=== PATIENT | male | born 1955 | race Caucasian/White ===

== ENCOUNTER 2019-03-27 01:26 | Emergency (ER) | payer BC ==
[~2019-03-27] VITALS: Ht 170.2 cm; Wt 104.3 kg
--- OUTSIDE RECORDS SUMMARY | ~2019-03-27 | XMS | Clinical Summary ---
Demographics + + + | Address | [address] | | | [place] [address] | + + + | Home Phone | | + + + | Preferred Language | Unknown | + + + | Marital Status | Unknown | + + + | Yazidism Affiliation | Unknown | + + + | Race | Unknown | + + + | Ethnic Group | Unknown | + + + Author + + + | Author | [facility] | | | and [place] | + + + | Organization | [facility] | | | and [place] | + + + | Address | Unknown | + + + | Phone | Unavailable | + + + Care Team Providers + +------+ + | Care Screen Printing Paster Name | Role | Phone | + +------+ + PP | Unavailable | + +------+ + Allergies No Known Allergies Medications + + + +---------+------+------+-------+ | Medication | Sig | Dispensed | Refills | Star | End | Statu | | | | | | t | Date | s | | | | | | Date | | | + + + +---------+------+------+-------+ | Fish Oil OIL | daily | | 0 | 09/1 | | Activ | | | | | | 4/20 | | e | | | | | | 12 | | | + + + +---------+------+------+-------+ | aspirin (ASPIRIN | Take 81 mg by mouth | | 0 | 09/1 | | Activ | | ADULT LOW STRENGTH) | Daily. | | | 4/20 | | e | | 81 MG EC tablet | | | | 12 | | | + + + +---------+------+------+-------+ | multivitamin | daily | | 0 | 09/1 | | Activ | | (THERAGRAN) per | | | | 4/20 | | e | | tablet | | | | 12 | | | + + + +---------+------+------+-------+ | allopurinol | | | 0 | 1 | | Activ | | (ZYLOPRIM) 100 mg | | | | 4/20 | | e | | tablet | | | | 12 | | | + + + +---------+------+------+-------+ | celecoxib | Take 200 mg by mouth | | 0 | 09/1 | | Activ | | (CELEBREX) 200 mg | Daily. | | | 420 | | e | | capsule | | | | 12 | | | + + + +---------+------+------+-------+ Active Problems Not on file Social History + +-------+ +--------+------+ | Tobacco Use | Types | Packs/Day | Years | Date | | | | | Used | | + +-------+ +--------+------+ | Never Assessed | | | | | + +-------+ +--------+------+ + + + | Sex Assigned at | Date Recorded | | | | + + + | Not on file | | + + + + + + + | Job Start Date | Occupation | Industry | + + + + | Not on file | Not on file | Not on file | + + + + + + + + | Travel History | Travel Start | Travel End | + + + + + + | No recent travel history available. | + + Last Filed Vital Signs + + + + | Vital Sign | Reading | Time Taken | + + + + | Blood Pressure | 138/78 | 05/23/2010 0000 PDT | + + + + | Pulse | - | - | + + + + | Temperature | - | - | + + + + | Respiratory Rate | - | - | + + + + | Oxygen Saturation | - | - | + + + + | Inhaled Oxygen | - | - | | Concentration | | | + + + + | Weight | 101.3 kg (223 lb 6.4 | 05/23/2010 0000 PDT | | | oz) | | + + + + | Height | 167.6 cm (5' 6") | 05/23/2010 0000 PDT | + + + + | Body Mass Index | 36.06 | 05/23/2010 0000 PDT | + + + + Plan of Treatment + + + + + | Health Maintenance | Due Date | Last Done | Comments | + + + + + | Vaccine: | | | | | Dtap/Tdap/Td (1 - | 2 | | | | Tdap) | | | | + + + + + | Vaccine: Zoster (1 | | | | | of 2) | 3 | | | + + + + + | Vaccine: | | | | | Pneumococcal 65+ | 8 | | | | Low/Medium Risk (1 | | | | | of 2 - PCV13) | | | | + + + + + | Vaccine: Influenza | | | | | (Season Ended) | 9 | | | + + + + + Results Not on filefrom Last 3 Months
--- OUTSIDE RECORDS SUMMARY | ~2019-03-27 | XMS | Clinical Summary ---
Demographics + + + | Address | [address] | | | [place] [address] | + + + | Home Phone | | + + + | Preferred Language | Unknown | + + + | Marital Status | Unknown | + + + | Oriental Orthodox Affiliation | Unknown | + + + | Race | Unknown | + + + | Ethnic Group | Unknown | + + + Author + + + | Author | [facility] | | | and [place] | + + + | Organization | [facility] | | | and [place] | + + + | Address | Unknown | + + + | Phone | Unavailable | + + + Care Team Providers + +------+ + | Care Civil Drafting Technician Name | Role | Phone | + [...]
[~2019-03-27 01:26] MED LIST: ALLOPURINOL100 MG PO; CELEBREX200 MG PO; CRUTCH1 EACH MISC; GLUCOPHAGE500 MG PO; VITAMIN D250000 UNIT PO
[2019-03-27] MEDS ORDERED: MECLIZINE HCL25 MG PO (03:23)
--- NOTE | 2019-03-27 07:17 | EKG ---
[facility] [address] [facility] [place] [address] Signed Normal sinus rhythm Possible Left atrial enlargement Borderline ECG No previous ECGs available Confirmed by HIPOLITO BARAKAT MD ([id number]) on 03/27/2019 7:17:22 AM Electronically Signed By: HIPOLITO BARAKAT MD 03/27/19 0717 PATIENT NAME: BRADLEY ONEAL J Electrocardiogram DATE OF : 51 PHYSICIAN: HIPOLITO BARAKAT MD REPORT #: [id number] REPORT IS CONFIDENTIAL AND NOT TO BE RELEASED WITHOUT AUTHORIZATION
== END 2019-03-27 03:30 | disposition home or self-care (01) ==
LOC: ED 01:26
DX: R42 Dizziness and giddiness (principal); I10 Essential (primary) hypertension; E11.9 Type 2 diabetes mellitus without complications; Z87.891 Personal history of nicotine dependence
CPT/HCPCS: 71045; 80053; 85025; 93005; 93010; 99284-25

== ENCOUNTER 2019-04-15 13:28 | Emergency (ER) | payer BC ==
[~2019-04-15] VITALS: Ht 170.2 cm; Wt 104.3 kg
--- OUTSIDE RECORDS SUMMARY | ~2019-04-15 | XMS | Clinical Summary ---
Demographics + + + | Address | [address] | | | [place] [address] | + + + | Home Phone | | + + + | Preferred Language | Unknown | + + + | Marital Status | Unknown | + + + | Shinto Affiliation | Unknown | + + + | Race | Unknown | + + + | Ethnic Group | Unknown | + + + Author + + + | Author | [facility] | | | and [place] | + + + | Organization | [facility] | | | and [place] | + + + | Address | Unknown | + + + | Phone | Unavailable | + + + Care Team Providers + +------+ + | Care Food Safety Officer Name | Role | Phone | + [...]
--- OUTSIDE RECORDS SUMMARY | ~2019-04-15 | XMS | Clinical Summary ---
Demographics + + + | Address | [address] | | | [place] [address] | + + + | Home Phone | | + + + | Preferred Language | Unknown | + + + | Marital Status | Unknown | + + + | Tenriism Affiliation | Unknown | + + + | Race | Unknown | + + + | Ethnic Group | Unknown | + + + Author + + + | Author | [facility] | | | and [place] | + + + | Organization | [facility] | | | and [place] | + + + | Address | Unknown | + + + | Phone | Unavailable | + + + Care Team Providers + +------+ + | Care Broodmare Barn Groom Name | Role | Phone | + [...]
[~2019-04-15 13:28] MED LIST changes: +MECLIZINE HCL25 MG PO
--- OUTSIDE RECORDS SUMMARY | 2019-04-15 13:32 | XMS ---
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 Carolyne has no Care Guidelines for this patient. [place] [facility] ([facility] MO.) [facility] NOTE: Visits indicate total known visits. ED/C VISIT TRACKING (12 MO.) 04/15/2019 13:29 [facility] [place] TYPE: Emergency COMPLAINT: - DIZZINESS 03/27/2019 01:26 [facility] [place] TYPE: Emergency COMPLAINT: - DIZZINESS DIAGNOSES: - Personal history of nicotine dependence - Type 2 diabetes mellitus without complications - Essential (primary) hypertension - Dizziness and giddiness INPATIENT VISIT TRACKING (12 MO.) No inpatient visits to display in this time frame [email or web address]
[2019-04-15] MEDS ORDERED: ONDANSETRON ODT8 MG PO (16:42)
[2019-04-15] MEDS ORDERED: LISINOPRIL10 MG PO (17:06)
[2019-04-15] MEDS ORDERED: GLUCOPHAGE500 MG PO (17:06)
--- NOTE | 2019-04-16 17:05 | EKG ---
[facility] [address] [facility] [place], [place] [address] Signed Normal sinus rhythm Right atrial enlargement Borderline ECG When compared with ECG of 27-MAR-2019 01:56, No significant change was found Confirmed by DIONNA HERRERA DO ([id number]) on 04/16/2019 5:05:27 PM Electronically Signed By: DIONNA HERRERA DO 04/16/19 1705 PATIENT NAME: BRADLEY ONEAL Electrocardiogram DATE OF : 51 PHYSICIAN: DIONNA HERRERA DO REPORT #: [id number] REPORT IS CONFIDENTIAL AND NOT TO BE RELEASED WITHOUT AUTHORIZATION
== END 2019-04-15 17:25 | disposition home or self-care (01) ==
LOC: ED 13:28
DX: K29.00 Acute gastritis without bleeding (principal); E11.9 Type 2 diabetes mellitus without complications; I10 Essential (primary) hypertension; Z87.891 Personal history of nicotine dependence
CPT/HCPCS: 71046; 80053; 83735; 84484; 85025; 93005; 93010; 94640; 96361; 96374; 99284-25; J2405; J7030

== ENCOUNTER 2019-04-20 10:09 | Observation (INO) | payer BC ==
[~2019-04-20] VITALS: Ht 170.2 cm; Wt 94.1 kg
--- OUTSIDE RECORDS SUMMARY | ~2019-04-20 | XMS | Clinical Summary ---
Demographics + + + | Address | [address] | | | [place] [address] | + + + | Home Phone | | + + + | Preferred Language | Unknown | + + + | Marital Status | Unknown | + + + | Mandaeism Affiliation | Unknown | + + + | Race | Unknown | + + + | Ethnic Group | Unknown | + + + Author + + + | Author | [facility] | | | and [place] | + + + | Organization | [facility] | | | and [place] | + + + | Address | Unknown | + + + | Phone | Unavailable | + + + Care Team Providers + +------+ + | Care Venereal Disease Investigator Name | Role | Phone | + [...]
--- OUTSIDE RECORDS SUMMARY | ~2019-04-20 | XMS | Clinical Summary ---
Demographics + + + | Address | [address] | | | [place] [address] | + + + | Home Phone | | + + + | Preferred Language | Unknown | + + + | Marital Status | Unknown | + + + | Gnosticist Affiliation | Unknown | + + + | Race | Unknown | + + + | Ethnic Group | Unknown | + + + Author + + + | Author | [facility] | | | and [place] | + + + | Organization | [facility] | | | and [place] | + + + | Address | Unknown | + + + | Phone | Unavailable | + + + Care Team Providers + +------+ + | Care Graduating Machine Operator Name | Role | Phone | + [...]
--- OUTSIDE RECORDS SUMMARY | ~2019-04-20 | XMS | Clinical Summary ---
Demographics + + + | Address | [address] | | | [place] [address] | + + + | Home Phone | | + + + | Preferred Language | Unknown | + + + | Marital Status | Unknown | + + + | Jewish Affiliation | Unknown | + + + | Race | Unknown | + + + | Ethnic Group | Unknown | + + + Author + + + | Author | [facility] | | | and [place] | + + + | Organization | [facility] | | | and [place] | + + + | Address | Unknown | + + + | Phone | Unavailable | + + + Care Team Providers + +------+ + | Care Injection Molding Engineer Name | Role | Phone | + [...]
[~2019-04-20 10:09] MED LIST changes: +LISINOPRIL10 MG PO; +ONDANSETRON ODT8 MG PO
--- OUTSIDE RECORDS SUMMARY | 2019-04-20 10:12 | XMS ---
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 - Has Care Guidelines - [facility] - 2 Visits in 30 Days CARE PROVIDERS VIKY LINARES Nurse Practitioner: Family 04/16/2019-Current PHONE: Unknown Carolyne has no Care Guidelines for this patient. Care History Medical/Surgical 04/16/2019 [facility] - Patient is currently established with [facility]. If patient is seen in the ED during business hours. Please contact [facility] at [facility]. Care Recommendation: This patient has had 5 or more Emergency Department visits in the last 12 months.\T\nbsp; Patient requires education on the scope and purpose of the ED as an acute care provider not a Primary Care Provider and should not be utilized for chronic conditions.\T\nbsp; These are guidelines and the provider should exercise clinical judgment when providing care. E.D. VISIT COUNT (12 MO.) 3 [facility] TOTAL 3 NOTE: Visits indicate total known visits. ED/UCC VISIT TRACKING (12 MO.) 04/20/2019 10:[address] [facility] [place] TYPE: Emergency COMPLAINT: - HEAD INJURY/FALL 04/15/2019 13:[address] [facility] [place] TYPE: Emergency COMPLAINT: - DIZZINESS DIAGNOSES: - Dizziness and giddiness - Essential (primary) hypertension - Personal history of nicotine dependence - Acute gastritis without bleeding - Type 2 diabetes mellitus without complications 03/27/2019 01:26 [facility] [place] TYPE: Emergency COMPLAINT: - DIZZINESS DIAGNOSES: - Personal history of nicotine dependence - Type 2 diabetes mellitus without complications - Essential (primary) hypertension - Dizziness and giddiness INPATIENT VISIT TRACKING (12 MO.) No inpatient visits to display in this time frame [email or web address]
--- NOTE | 2019-04-20 17:37 | NUR ---
SHABBIR FROM ED CALLED TO LET US KNOW THAT PATIENT IS CURRENTLY ON 2L O2, SHE STATED THAT THEY QUALIFYING HIM FOR HOME 02. I NOTIFIED EARLENE HIS NEW RN.
--- NOTE | 2019-04-20 18:00 | NUR ---
PT ARRIVED TO ROOM 112M AT THIS TIME. ALERT AND ORIENTED, SPOUSE AT BEDSIDE. PT REPORTS NO PAIN. PT ON 2L OXYGEN N.C.
--- NOTE | 2019-04-20 18:28 | NUR ---
PT PASSED SWALLOW EVAL, NO ISSUES. DINNER ORDERED
--- NOTE | 2019-04-20 18:33 | NUR ---
PT REPORTS SLIGHT SENSORY CHANGE TO RLE VERSES LEFT. NO OTHER DEFICITS NOTED
--- NOTE | 2019-04-20 19:20 | NUR ---
BEDSIDE REPORT RECEIVED FROM PATTY HENAO. PT RESTING IN BED, ATE 100% OF DINNER. TRAY TABLE CLEARED. 2L OXYGEN BY NC ON. SCDS ON. CALL LIGHT IN REACH. BED ALARM ON. NO REQUESTS AT THIS TIME.
--- NOTE | 2019-04-20 22:12 | NUR ---
PT ASSESSMENT COMPLETE. NEURO CHECK COMPLETE WNL, CHRONIC TREMORS NOTED. SPO2 WNL ON 2L OXYGEN BY NC. LUNGS CLEAR THROUGHOUT ALL LOBES. HR REGULAR RHYTHM. SCDS ON. BED ALARM IN PLACE. PT DENIES PAIN. NO ADDITIONAL NEEDS AT THIS TIME. CALL LIGHT IN REACH. ORIENTATION TO ROOM PROVIDED.
--- NOTE | 2019-04-21 00:50 | NUR ---
CHECKED ON PT. RESTING IN BED ON SIDE WITH EYES CLOSED. SPO2 WNL ON 2L OXYGEN BY NC. BED ALARM ON. SCDS ON.
--- NOTE | 2019-04-21 01:36 | NUR ---
CALL LIGHT ANSWERED, SBA TO RESTROOM FOR VOID AND BACK TO BED. PT STEADY ON FEET, REACHES FOR FURNITURE WITH AMBULATION. SBA. PT STATES "ITS HABIT" DENIES DIZZINESS. NEURO CHECK COMPLETE, WNL. TREMORS NOTED BUE. SPO2 WNL ON 2L OXYGEN BY NC. LIGHTS OFF IN ROOM. CALL LIGHT IN REACH. ICE WATER PROVIDED.
--- NOTE | 2019-04-21 03:51 | NUR ---
CHECKED ON PT, RESTING IN BED WITH EYES CLOSED. BREATHING NON-LABORED. SPO2 WNL ON 2L OXYGEN BY NC. HR 56 ON TELE 6. LIGHTS OFF IN ROOM. SCDS ON.
--- NOTE | 2019-04-21 05:16 | NUR ---
MORNING ASSESSMENT AND VS COMPLETE. VSS. NEURO CHECK WNL. LUNGS CLEAR THROUGHOUT, PT ON 2L OXYGEN BY NC, SPO2 WNL. CPOX ON. SCDS IN PLACE. PT DENIES TOILETING NEEDS AT THIS TIME. ICE WATER PROVIDED. CALL LIGHT IN REACH.
--- NOTE | 2019-04-21 05:32 | NUR ---
ASSISTED PT TO RESTROOM AND BACK TO BED. HE DENIES FURTHER NEEDS, CALL LIGHT IS WITHIN REACH.
--- NOTE | 2019-04-21 06:44 | NUR ---
NEURO CHECKS Q4H WNL. PT W CHRONIC TREMORS BUE. ALERT AND ORIENTED X 4 USING CALL LIGHT APPROPRIATELY. HARD OF HEARING. SBA TO RESTROOM FOR QS VOIDS. REQUIRES INSTRUCTION WITH AMBULATION NOT TO GRAB FURNITURE W AMBULATION. TELE 6 REGULAR RHYHTM. VS STABLE. PRESENT IN ROOM THROUGHOUT SHIFT. SCDS IN PLACE.
--- NOTE | 2019-04-21 07:24 | NUR ---
REPORT FROM PATTY RUSHING. PT AWAKE AND BS CHECK DONE, 150. NEURO CHECKS HAVE REPORTEDLY BEEN NEGATIVE AND PT DENIES ANY SYMPTOMS.
--- NOTE | 2019-04-21 08:27 | NUR ---
PT ATE BREAKFAST, MEDS ADMINISTERED, SHOWERED, TELE LEADS REPLACED, BED MADE AND PT SITTING UP IN CHAIR.
--- NOTE | 2019-04-21 09:17 | NUR ---
PT CURRENTLY HAVING CAROTID ULTRASOUND.
--- NOTE | 2019-04-21 10:15 | NUR ---
PATIENT SITTING IN CHAIR. HE HAD A SHOWER THIS MORNING. ATE BREAKFAST. WATER REFRESHED. CALL LIGHT IN REACH. NO FURTHER NEEDS AT THIS TIME.
--- NOTE | 2019-04-21 11:01 | NUR ---
PT SLEEPING IN CHAIR. TURNED O2 OFF, SATS REMAIN 95-96%. CALLED RT TO WALK IN [place] WITH MONITOR.
--- NOTE | 2019-04-21 12:44 | NUR ---
PT SITTING UP IN CHAIR EATING LUNCH. OPENED CURTAINS ECHO HAD DRAWN THEM. PT DENIES CONCERNS. PT O2 SATS 99% ON RA.
--- NOTE | 2019-04-21 13:07 | NUR ---
RECIEVED BEDSIDE REPORT FROM PATTY PARKINSON. PT IN BED, SITTING IN CHAIR POSITION IN BED, FAMILY AT BEDSIDE. PT HAS PERSONAL SUPPLIES AND CALL LIGHT IN REACH. PT CONFUSED PER HIS BASELINE. PT DENIED NEEDS AT THIS TIME.
--- NOTE | 2019-04-21 13:23 | NUR ---
PT SITTING UP IN RECLINER. ON RA, OXYGEN SATURATION LEVEL 94%. LUNGS DIMINISHED THROUGHOUT. PT DENIED PAIN. PERSONAL SUPPLIES AND CALL LIGHT IN REACH.
[2019-04-21] MEDS ORDERED: ATORVASTATIN CA80 MG PO (14:36)
[2019-04-21] MEDS ORDERED: ASPIRIN EC81 MG PO (14:37)
--- NOTE | 2019-04-21 15:25 | NUR ---
GAVE PT AND HIS DISCHARGE EDUCATION AND INSTRUCTIONS. GAVE EDUCATION PRINTED MATERIALS ON DIABETES, AND ON DIABETES AND NUTRITION. QUESTIONS ASKED AND ANSWERED, PT AND VERBALIZED UNDERSTANDING. IV D/C'D WNL.
== END 2019-04-21 15:30 | disposition home or self-care (01) ==
LOC: ED 10:09 → MS 17:09
PROVIDERS: ADMIT Internal Medicine
DX: I63.233 Cerebral infarction due to unspecified occlusion or stenosis of bilateral carotid arteries (principal); I10 Essential (primary) hypertension; M10.9 Gout, unspecified; H91.10 Presbycusis, unspecified ear; G25.0 Essential tremor; R09.02 Hypoxemia; R29.700 NIHSS score 0; R40.2362 Coma scale, best motor response, obeys commands, at arrival to emergency department; R40.2142 Coma scale, eyes open, spontaneous, at arrival to emergency department; R40.2252 Coma scale, best verbal response, oriented, at arrival to emergency department; E78.5 Hyperlipidemia, unspecified; E11.65 Type 2 diabetes mellitus with hyperglycemia; Z87.891 Personal history of nicotine dependence; Z91.14 Patient's other noncompliance with medication regimen; Z79.84 Long term (current) use of oral hypoglycemic drugs; Z79.899 Other long term (current) drug therapy
CPT/HCPCS: 70450; 70551; 80053; 80061; 83036; 83880; 84484; 85025; 85379; 90471; 90715; 93306; 93880; 94060; 94640; 94761; 94762; 97162; 97166; 99285-25; G0378; J1815

== ENCOUNTER 2020-12-17 13:46 | Emergency (ER) | payer BC ==
[~2020-12-17] VITALS: Ht 170.2 cm; Wt 100.0 kg
[~2020-12-17 13:46] MED LIST changes: +ASPIRIN EC81 MG PO; +ATORVASTATIN CA80 MG PO
--- NOTE | 2020-12-18 08:06 | EKG ---
[facility] [address] [facility] [place], [place] [address] Signed Sinus tachycardia Biatrial enlargement Abnormal ECG When compared with ECG of 15-APR-2019 13:58, No significant change was found Confirmed by HIPOLITO BARAKAT MD ([id number]) on 12/18/2020 8:06:45 AM Electronically Signed By: HIPOLITO BARAKAT MD 12/18/20805 PATIENT NAME: BRADLEY ONEAL Electrocardiogram DATE OF : 51 PHYSICIAN: HIPOLITO BARAKAT MD REPORT #: [id number] REPORT IS CONFIDENTIAL AND NOT TO BE RELEASED WITHOUT AUTHORIZATION
== END 2020-12-17 17:20 | disposition home or self-care (01) ==
LOC: ED 13:46
DX: J44.9 Chronic obstructive pulmonary disease, unspecified (principal); Z20.822 Contact with and (suspected) exposure to COVID-19; E11.9 Type 2 diabetes mellitus without complications; I10 Essential (primary) hypertension; Z87.891 Personal history of nicotine dependence; Z79.899 Other long term (current) drug therapy; Z79.84 Long term (current) use of oral hypoglycemic drugs; Z79.82 Long term (current) use of aspirin
CPT/HCPCS: 71045; 80053; 83880; 84484; 85025; 85379; 93005; 93010; 94640; 99285-25; C9803; U0003

== ENCOUNTER 2021-07-11 13:58 | Observation (INO) | payer BC ==
[~2021-07-11] VITALS: Ht 170.2 cm; Wt 94.2 kg
--- NOTE | 2021-07-11 22:31 | EKG ---
[facility] [address] [facility] [place], [place] [address] Signed Normal sinus rhythm Right atrial enlargement Nonspecific ST abnormality Abnormal ECG When compared with ECG of 17-DEC-2020 13:56, Inverted T waves have replaced nonspecific T wave abnormality in Inferior leads Confirmed by DIONNA HERRERA DO ([id number]) on 07/11/2021 10:31:35 PM Electronically Signed By: DIONNA HERRERA DO 07/11/212230 PATIENT NAME: BRADLEY ONEAL [place] Electrocardiogram DATE OF : 51 PHYSICIAN: DIONNA HERRERA DO REPORT #: [id number] REPORT IS CONFIDENTIAL AND NOT TO BE RELEASED WITHOUT AUTHORIZATION
[2021-07-12] MEDS ORDERED: LISINOPRIL20 MG PO ×2 (07:37→18:29)
[2021-07-12] MEDS ORDERED: METFORMIN HCL500 MG PO ×2 (13:06→18:30)
[2021-07-12] MEDS ORDERED: CLOPIDOGREL75 MG PO (18:28)
[2021-07-12] MEDS ORDERED: ASPIRIN81 MG PO (18:29)
[2021-07-12] MEDS ORDERED: LIPITOR40 MG PO (18:29)
== END 2021-07-12 19:40 | disposition home or self-care (01) ==
LOC: ED 13:58 → MS 13:59
PROVIDERS: ADMIT Student in an Organized Health Care Education/Training Program; ATTEND Student in an Organized Health Care Education/Training Program
DX: I63.81 Other cerebral infarction due to occlusion or stenosis of small artery (principal); R29.703 NIHSS score 3; R47.81 Slurred speech; R29.810 Facial weakness; I65.01 Occlusion and stenosis of right vertebral artery; I70.8 Atherosclerosis of other arteries; I65.02 Occlusion and stenosis of left vertebral artery; E11.9 Type 2 diabetes mellitus without complications; I10 Essential (primary) hypertension; E78.5 Hyperlipidemia, unspecified; F10.10 Alcohol abuse, uncomplicated; M10.9 Gout, unspecified; Z87.891 Personal history of nicotine dependence; Z79.82 Long term (current) use of aspirin; Z79.84 Long term (current) use of oral hypoglycemic drugs; Z79.899 Other long term (current) drug therapy; Z20.822 Contact with and (suspected) exposure to COVID-19
CPT/HCPCS: 70450; 70496; 70498; 70551; 71045; 80048; 80053; 80061; 85025; 85610; 85730; 92523; 93005; 93010; 96372; 97161; 97165; 99285-25; C9803; G0378; G0480; J1650; J1815; Q3014; Q9967; U0003